=== PATIENT | female | born 2000 | race African-American/Black ===

== ENCOUNTER 2024-04-29 08:59 | Outpatient (CLI) | payer MEDICAID, SELFPAY | END 2024-04-29 09:00 | disposition home or self-care (01) | PROVIDERS: PCP Emergency Medicine; Visit Provider Physician Assistant Medical | DX: Z13.228 Encounter for screening for other metabolic disorders (principal); Z13.220 Encounter for screening for lipoid disorders; Z13.21 Encounter for screening for nutritional disorder; Z13.29 Encounter for screening for other suspected endocrine disorder; Z11.59 Encounter for screening for other viral diseases | CPT/HCPCS: 80053; 80061; 82652; 84443; 86703; 86803 ==